=== PATIENT | male | born 1955 | race Caucasian/White ===

== ENCOUNTER 2020-09-09 16:40 | Emergency (ER) | payer BC ==
[2020-09-09 16:50] VITALS: BP 134/75; PULSE 68; TEMP 97.8; BMI 23.7
== END 2020-09-09 19:40 | disposition home or self-care (01) ==
LOC: FER 16:40
DX: S00.83XA Contusion of other part of head, initial encounter (principal); W19.XXXA Unspecified fall, initial encounter
CPT/HCPCS: 70450-TC; 99284-25